=== PATIENT | male | born 1960 | race Caucasian/White ===

== ENCOUNTER 2020-08-02 18:10 | Emergency (ER) | payer BC ==
[2020-08-02] MEDS ORDERED: Bacitracin Oint 1 GM U/D Packet TOP ONE (20:34)
[2020-08-02] MEDS ORDERED: Amoxicillin/Clavulanate K 875-125 MG Tab PO ONE (20:42)
[2020-08-02] MEDS ORDERED: Diphtheria,Pertussis(Acell),Tetanus Vaccine 0.5 ML Syringe IM ONE (20:42)
--- NOTE | 2020-08-02 20:49 | EDM.PDOC ---
ED HPI GENERAL MEDICAL PROBLEM - General Chief Complaint: Upper Extremity Injury/Pain Stated Complaint: SMASHED FINGER Time Seen by Provider: 08/02/20 18:52 Source of Information: Reports: Patient History Limitations: Reports: No Limitations - History of Present Illness INITIAL COMMENTS - FREE TEXT/NARRATIVE: Cecil is a 59-year-old male presenting to the ED for evaluation of injury to his right middle finger that occurred when his finger got trapped between a lot he was throwing into a wood-burning stove in the stove room. He sustained a crush injury to the fingertip with significant bleeding from under the nail as well as a large laceration on the palmar distal phalanx. He is unsure when his last tetanus shot occurred. He denies any distal numbness. There is signi ficant swelling and ecchymosis involving the distal segment including the nailbed. Right Finger-Middle Pain Score (Numeric/FACES): 8 - Related Data Allergies Allergy/AdvReac Type Severity Reaction Status Date / Time No Known Allergies Allergy Verified 08/02/20 19:08 Home Meds: Home Meds NK [No Known Home Meds] 08/02/20 [History] Past Medical History - Infectious Disease History Infectious Disease History: Reports: Chicken Pox, Measles, Mumps - Past Surgical History GI Surgical History: Reports: Colonoscopy Social & Family History - Family History Family Medical History: No Pertinent Family History - Tobacco Use Tobacco Use Status *Q: Former Tobacco User Used Tobacco, but Quit: No Month/Year Tobacco Last Used: 14 years ago - Caffeine Use Caffeine Use: Reports: None - Recreational Drug Use Recreational Drug Use: No Review of Systems - Review of Systems Review Of Systems: See Below Constitutional: Reports: No Symptoms Eyes: Reports: No Symptoms Respiratory: Reports: No Symptoms Cardiovascular: Reports: No Symptoms Musculoskeletal: Reports: Hand Pain (Crush injury of the right middle finger distal segment with significant swelling, ecchymosis of the nailbed with blood coming out from under the nail, and a sizable 3.7 cm laceration on the palmar side of the distal segment of the finger.) Skin: Reports: Wound Neurological: Reports: No Symptoms Psychiatric: Reports: No Symptoms ED EXAM, GENERAL - Physical Exam Exam: See Below Exam Limited By: No Limitations General Appearance: Alert, Mild Distress Peripheral Pulses: 2+: Radial (R) Extremities: Normal Range of Motion, Joint Swelling, Redness, Other (Significant laceration on the palmar side of the distal segment of the right third finger measuring 3.7 cm extending into the subcutaneous tissue. Does not appear to involve the tendon as finger motion is intact. He still has good distal sensation. There is significant ecchymosis of this segment. In addition, it appears that there is disruption of the nailbed with blood coming out from under the nail.) Neurological: Alert, Oriented, Normal Cognition. No: Sensory/Motor Deficit Skin Exam: Warm, Ecchymosis (Ecchymosis of the distal segment of the right third finger.) ED TRAUMA EXTREMITY PROCEDURES - Laceration/Wound Repair Right Digit - 3rd (Middle) Appearance: Subcutaneous, Irregular, Mildly Contaminated Distal NVT: Neuro & Vascular Intact, No Tendon Injury Anesthetic Type: Local Local Anesthesia - Lidocaine (Xylocaine): 1% Plain Local Anesthetic Volume: 5cc Skin Prep: Chlorhexidine (Hibiciens) Exploration/Debridement/Repair: Wound Explored, In a Bloodless Field, Explored to Base, Minimal Debridement, Other (The nail needed to be removed in order to repair the nailbed that has a laceration.) Closed With: Sutures Suture Size: 4-0 # of Sutures: 10 Tetanus Status Addressed: Yes Complications: No Course - Vital Signs Last Recorded V/S: Last Vital Signs Temp 36.4 C 08/02/20 19:09 Pulse 77 08/02/20 19:09 Resp 16 08/02/20 19:09 BP 130/84 08/02/20 19:09 Pulse Ox 95 08/02/20 19:09 - Orders/Labs/Meds Orders: Active Orders 24 hr Category Date Time Status Vaccines to be Administered [RC] PER UNIT ROUTINE Care 08/02/20 20:42 Ordered Fingers Third Digit Rt F7 [CR] Stat Exams 08/02/20 19:07 Taken Meds: Medications Discontinued Medications Generic Name Dose Route Start Last Admin Trade Name Freq PRN Reason Stop Dose Admin Amoxicillin/Clavulanate Potassium 1 tab 08/02/20 20:42 Augmentin 875 Mg/125 Mg PO 08/02/20 20:43 ONETIME ONE Bacitracin 1 dose 08/02/20 20:34 Bacitracin Oint 1 Gm TOP 08/02/20 20:35 ONETIME ONE Diphtheria/Tetanus/Acell Pertussis 0.5 ml 08/02/20 20:42 Boostrix IM 08/02/20 20:43 .ONCE ONE Lidocaine HCl 5 ml 08/02/20 19:53 08/02/20 20:05 Xylocaine-Mpf 1% INJECT 08/02/20 19:54 5 ml ONETIME ONE Administration Lidocaine HCl 5 ml 08/02/20 20:14 08/02/20 20:18 Xylocaine-Mpf 1% INJECT 08/02/20 20:15 5 ml ONETIME ONE Administration - Re-Assessments/Exams Free Text/Narrative Re-Assessment/Exam: 08/02/20 20:00 x-rays of the right middle finger reveal a nondisplaced tuft fracture essentially making this an open fracture. We will place the patient on Augmentin 875 mg twice daily to prevent infection. His tetanus booster was given. He will need to have the sutures removed in 10 days. A splint was applied over the finger. We will have him follow-up with Dr. Bowman next week. 08/02/20 20:55 Indications to return to the ED were discussed and the patient was discharged in satisfactory condition. Departure - Departure Time of Disposition: 20:44 Disposition: Home, Self-Care 01 Condition: Good Clinical Impression: Open fracture of finger, distal phalanx Qualifiers: Encounter type: initial encounter Finger: middle finger Fracture alignment: nondisplaced Laterality: right Qualified Code(s): S62.662B - Nondisplaced fracture of distal phalanx of right middle finger, initial encounter for open fracture Nailbed laceration, finger Qualifiers: Encounter type: initial encounter Qualified Code(s): S61.319A - Laceration without foreign body of unspecified finger with damage to nail, initial encounter - Discharge Information *PRESCRIPTION DRUG MONITORING PROGRAM REVIEWED*: Yes *COPY OF PRESCRIPTION DRUG MONITORING REPORT IN PATIENT JOSH: No Instructions: Laceration Care, Adult, [id number], Finger Fracture, Adult Referrals: PCP,None [Primary Care Provider] - Care Plan Goals: Please keep the wound clean and dry. The nail may fall out over the course of t he next couple of days. I am starting you on an antibiotic called Augmentin to prevent infection. It is 1 tablet twice daily for 10 days. I have also included a small amount of hydrocodone for severe pain. You should wear the splint when active to prevent further injury of the finger. This includes even after the sutures are removed. You should grow a new nail out over the nailbed once it heals. Should you seen any signs of infection please return to the ED immediately. Sepsis Event Note (ED) - Evaluation Sepsis Screening Result: No Definite Risk - Focused Exam Vital Signs: Vital Signs Temp Pulse Resp BP Pulse Ox 08/02/20 19:09 36.4 C 77 16 130/84 95 08/02/20 18:27 36.4 C 77 16 130/84 95 - Problem List & Annotations (1) Nailbed laceration, finger SNOMED Code(s): 404436592 Code(s): S61.319A - LACERATION W/O FB OF UNSP FINGER W DAMAGE TO NAIL, INIT Status: Acute Priority: High Current Visit: Yes Qualifiers: Encounter type: initial encounter Qualified Code(s): S61.319A - Laceration without foreign body of unspecified finger with damage to nail, initial encounter (2) Open fracture of finger, distal phalanx SNOMED Code(s): 87331809 Code(s): S62.639B - DISP FX OF DISTAL PHALANX OF UNSP FINGER, INIT FOR OPN FX Status: Acute Priority: High Current Visit: Yes Qualifiers: Encounter type: initial encounter Finger: middle finger Fracture alignment: nondisplaced Laterality: right Qualified Code(s): S62.662B - Nondisplaced fracture of distal phalanx of right middle finger, initial encounter for open fracture - Problem List Review Problem List Initiated/Reviewed/Updated: Yes - My Orders Last 24 Hours: My Active Orders 08/02/20 19:07 Fingers Third Digit Rt F7 [CR] Stat 08/02/20 20:42 Vaccines to be Administered [RC] PER UNIT ROUTINE - Assessment/Plan Last 24 Hours: My Active Orders 08/02/20 19:07 Fingers Third Digit Rt F7 [CR] Stat 08/02/20 20:42 Vaccines to be Administered [RC] PER UNIT ROUTINE
--- NOTE | 2020-08-03 09:07 | CR ---
Fingers Third Digit Rt F7 CLINICAL HISTORY: Trauma FINDINGS: There is a transverse tuft fracture of the third distal phalanx. There is moderate soft tissue swelling. Impression: Tuft fracture third distal phalanx
== END 2020-08-02 21:13 | disposition home or self-care (01) ==
LOC: JP.ED 18:10
DX: S62.662B Nondisplaced fracture of distal phalanx of right middle finger, initial encounter for open fracture (principal); Z87.891 Personal history of nicotine dependence; W23.0XXA Caught, crushed, jammed, or pinched between moving objects, initial encounter
CPT/HCPCS: 11750; 11760; 12002; 73140; 90471; 90715; 99283; A9270; J2001